=== PATIENT | male | born 1965 | race Caucasian/White ===

== ENCOUNTER 2020-04-10 16:13 | Emergency (ER) | payer OTHER, SELFPAY ==
--- NOTE | ~2020-04-10 | XR_ITS ---
EXAMINATION: XR shoulder LT min 2V EXAM DATE: 04/10/2020 16:32 INDICATION: Initial encounter following injury, with pain of the shoulder. TECHNIQUE: The following left shoulder projections obtained: frontal projection with internal rotatio n, frontal projection with external rotation, Grashey, and scapular Y view (4+ views). There is no p rior study for comparison. FINDINGS: No evidence of left shoulder rotator cuff calcific tendinosis. Unremarkable left glenoh umeral and acromioclavicular joints. Mild left shoulder primary osteoarthritis. There are no acute f ractures or dislocations identified. There is no subcutaneous gas. The soft tissue is unremarkable. There are no radiopaque foreign bodies. IMPRESSION: No acute osseous findings. Reviewed, dictated and finalized at location A. ERSITY LIBRARIAN IMPRESSION: No acute osseous findings.
[2020-04-10 16:22] VITALS: BP 135/75; PULSE 85; RESP 20; TEMP 36.1; O2SAT 100
--- NOTE | 2020-04-10 16:37 | ED.UPPEXIN ---
HPI - Extremity Injury (Upper) General Chief Complaint: Extremity Injury, Upper Stated Complaint: INJURED L SHOULDER Time Seen by Provider: 04/10/20 16:37 Source: patient and RN notes reviewed Mode of arrival: ambulatory Limitations: no limitations History of Present Illness HPI narrative: 54 year old male who presents to [facility] care with complaints of decrease in ROM of his left shoulder after a box landed on his left upper chest along clavicle area at work on the 07 of April. He states that he was helping to unload truck and a box came down and hit his upper left chest along his clavicle. Patient states no pain at rest but is unable to raise his left arm upward without discomfort and limitation. Patient denies any tingling or numbness to his left arm or hand with no radiation of pain down his arm, strong brachial and radial pulses present. Patient has taken some Ibuprofen for his discomfort but no improvement in his mobility. complaint: injury to: left Onset (ago): day(s) (3) Other Extremity Injury: Left: shoulder Other injuries: none Handedness: right Place: work Severity: mild Severity scale (1-10): 3 Relieving factors: none Exacerbating factors: movement of extremity Context: direct blow Associated symptoms: denies other symptoms Treatments prior to arrival: NSAIDS Related Data Allergies Allergy/AdvReac Type Severity Reaction Status Date / Time No Known Allergies Allergy Verified 04/10/20 16:22 Review of Systems Review of Systems: Narrative: CONSTITUTIONAL: Denies fever, chills, or sweats. EYES: Denies visual changes, redness, or discharge. ENT: Denies rhinorrhea, congestion, sore throat, or otalgia. CARDIOVASCULAR: Denies chest pain, palpitations, or edema. RESPIRATORY: Denies cough or dyspnea. GASTROINTESTINAL: Denies abdominal pain, nausea, vomiting, or diarrhea. GENITOURINARY: Denies dysuria or hematuria. SKIN: Denies rash or itching. MUSCULOSKELETAL: Denies back pain, positive left shoulder pain with extension , or myalgia. NEUROLOGIC: Denies headache, numbness, or weakness. PSYCHIATRIC: Denies anxiety or depression. All systems reviewed & are unremarkable except as noted in HPI and below PMFSH Past Medical History Medical History (Updated 04/12/20 @ 20:08 by Berenice Padron NP) Epigastric pain Surgical History Surgical History (Updated 04/12/20 @ 19:55 by Berenice Padron NP) History of tonsillectomy Family History Family History (Updated 09/29/18 @ 09:59 by DOCTOR UNKNOWN) Father Family history of primary malignant neoplasm of liver, Onset Age: 76 Social History Social History Smoking status: Never smoker Second hand tobacco smoke exposure: No Alcohol intake: current Exam Narrative: Exam Narrative: GENERAL: Well-appearing, well-nourished, and in no acute distress. HEAD: Normocephalic, atraumatic. EYES: PERRLA and EOMI. ENT: Nares clear, no rhinorrhea or epistaxis. Mucous membranes moist. NECK: Supple.no lymphadenopaty CHEST: Clear to auscultation. No respiratory distress. HEART: Regular rate and rhythm. No murmur heard. Normal peripheral pulses. ABDOMEN: Soft, nontender, nondistended, normal active bowel sounds. EXTREMITIES: Normal range of motion with exception of inability to raise left arm in upward motion since injury, circulation and sensation intact to left arm with no radiation of pain in his left arm. No crepitus of AC joint noted and pain is reproducible with extension of left arm. SKIN: Warm, dry, no rash.no ecchymosis or redness of skin in area of stated injury NEURO: No focal deficits. Alert and oriented x3. Course Vital Signs Vital signs: Vital Signs Temperature 36.1 C L 04/10/20 16:22 Pulse Rate 85 04/10/20 16:22 Respiratory Rate 20 04/10/20 16:22 Blood Pressure 135/75 04/10/20 16:22 Pulse Oximetry 100 04/10/20 16:22 Temperature 36.1 C L 04/10/20 16:22 Pulse Rate 85 04/10/20 16:22 Respiratory Rate 20 04/10/20 16:22 Blo
== END 2020-04-10 16:57 | disposition home or self-care (01) ==
PROVIDERS: Emergency Provider Registered Nurse; PCP Family Medicine
DX: M25.512 Pain in left shoulder (principal)
CPT/HCPCS: 73030; 99213; G0463

== ENCOUNTER → 2020-05-03 15:20 | Outpatient (CLI) | payer BC, SELFPAY ==
--- NOTE | ~2020-05-03 | MR_ITS ---
EXAMINATION: MR shoulder LT wo con DATE: 05/03/2020 16:34 INDICATION: Left shoulder pain TECHNIQUE: Magnetic resonance imaging (MRI) of the left shoulder was performed without intravenous co ntrast. Sequences included axial PD-weighted FS FSE, coronal oblique PD-weighted FS FSE, coronal obli que T2-weighted FS FSE, sagittal PD-weighted FS FSE, and sagittal T1-weighted SE. COMPARISON: Left shoulder radiographs dated 04/10/2020 FINDINGS: Coracoacromial arch: The acromion undersurface is curved in morphology (type II). The coracoacromial ligament is normal. N egligible acromioclavicular osteoarthritis. Rotator cuff: Mild infraspinatus tendinopathy without discrete tear. The supraspinatus, teres minor and subscapular is tendons are normal. Normal rotator cuff muscle bulk and signal. Biceps tendon, glenoid labrum and glenohumeral cartilage: Long head of the biceps tendon is normal. Superior, anterior to posterior tear of the glenoid labrum (SLAP tear) at the 10:00-12:00 position of the posterior superior glenoid labrum. Glenohumeral cartil age is normal. Fluid: Physiologic amount of fluid in the glenohumeral joint and biceps tendon sheath. No loose osteochondra l bodies. No abnormal fluid signal in the subacromial/subdeltoid bursa to suggest bursitis. Bones: 9 mm T2 hyperintense lesion along the physeal scar at the left humeral head with location and appeara nce most consistent with an enchondroma. There is also a smaller bone island at the left humeral head . Marrow signal is otherwise normal. No reactive edema, fracture or other pathologic marrow replacing process. IMPRESSION: 1. SLAP tear at the superior to posterior superior glenoid labrum. 2. Mild infraspinatus tendinopathy without discrete tear. Reviewed, dictated and finalized at location B. LE ENDING MACHINE OPERATOR
== END ==
PROVIDERS: Visit Provider Nurse Practitioner Family
DX: M25.512 Pain in left shoulder (principal); S43.432A Superior glenoid labrum lesion of left shoulder, initial encounter; M75.82 Other shoulder lesions, left shoulder
CPT/HCPCS: 73221

== ENCOUNTER 2020-07-18 22:35 | Emergency (ER) | payer BC, SELFPAY ==
--- NOTE | ~2020-07-18 | XR_ITS ---
EXAMINATION: XR lumbar spine 2-3V DATE: 07/18/2020 23:05 INDICATION: Low back pain. TECHNIQUE: 3 views of lumbar spine were obtained. COMPARISON: CT abdomen and pelvis 03/07/2013 FINDINGS: There is 8 degrees levocurvature of lumbar spine. There is a compression fracture of L3 wit h 1/5 loss of height. There is mildly decreased disc height at L4-L5. There is multilevel mild facet joint osteoarthritis. IMPRESSION: 1. Age-indeterminate compression fracture of L3. 2. Mild lumbar spondylosis. Reviewed, dictated and finalized at location A. ICANE TRACKER
--- NOTE | ~2020-07-18 | CT_ITS ---
EXAMINATION: CT lumbar spine wo con EXAM DATE: 07/19/2020 00:19 INDICATION: Low back pain and spasms for a week. TECHNIQUE: Spiral CT of the lumbar spine was performed without contrast. Axial, coronal and sagittal images were reviewed. The dose-length product (DLP) for this examination was 754.87 mGy-cm. The e xposure was tailored according to patient size (auto mA exposure control), and iterative reconstructi on (ASIR) was used as additional dose reduction technique. Correlation is made to lumbar x-ray 07/18. FINDINGS: There are innumerable small lytic regions throughout the bones, likely multiple myeloma or metastatic disease. There is a pathological compression fracture inferior endplate of L3 which could be acute, about 20% loss of vertebral body height. The vertebral body and disc heights are otherwise well maintained. The vertebral bodies are aligned in the AP dimension. Number than mild neural forami nal stenosis at lower lumbar levels. Mild lumbar facet arthropathy. Punctate bilateral inferior calyc eal stones. No retroperitoneal lymphadenopathy. IMPRESSION: 1. Innumerable small lytic osseous lesions likely multiple myeloma or metastatic disease. 2. Mild compression fracture inferior endplate L3, probably acute pathological fracture. Reviewed, dictated and finalized at location B. HOUSE ATTENDANT IMPRESSION: 1. Innumerable small lytic osseous lesions likely multiple myeloma or metastat ic disease. 2. Mild compression fracture inferior endplate L3, probably acute pathological fracture.
[2020-07-18 22:41] VITALS: BP 151/89; PULSE 77; RESP 17; TEMP 36.4; O2SAT 99
--- NOTE | 2020-07-18 22:51 | ED.BACK ---
HPI - Back Pain/Injury General Chief Complaint: Back Pain/Injury Stated Complaint: Back spasms Time Seen by Provider: 07/18/20 22:39 Source: patient Mode of arrival: ambulatory Limitations: no limitations History of Present Illness HPI Narrative: This is a 55 year old male who presents for evaluation of back spasms. He reports he has sharp pain bilateral lower back pain that radiates to mid back. This pain has been present for 2 weeks, and it is gradually worsening. His pain is worse with bending over and movement. He denies any injury. He reports today his pain is radiating to bilateral flank. He denies urinary symptoms, nausea, vomiting, fever or chills. He denies urinary incontinent, leg weakness, numbness or tingling. He has been taking ibuprofen and tylenol without relief. Related Data Allergies Allergy/AdvReac Type Severity Reaction Status Date / Time No Known Allergies Allergy Verified 07/18/20 22:44 Review of Systems Review of Systems: All systems reviewed & are unremarkable except as noted in HPI and below Constitutional: Constitutional: Denies chills and Denies fever(s) ENT: Denies dizziness Respiratory: Respiratory: Denies cough and Denies dyspnea Gastrointestinal: Gastrointestinal: Denies diarrhea, Denies nausea and Denies vomiting Genitourinary: Genitourinary: Denies urinary incontinence Musculoskeletal: Musculoskeletal: Reports back pain PMFSH Past Medical History Medical History Epigastric pain Surgical History Surgical History History of hand surgery Lt hand. History of tonsillectomy History of tooth extraction Molar Family History Family History Father Family history of primary malignant neoplasm of liver, Onset Age: 76 Carcinoma of colon Other Diabetes mellitus Social History Social History Second hand tobacco smoke exposure: No Alcohol intake: current Substance use: never Gender identity (if verbalized by the patient): Male Exam Const: General: no acute distress and alert Orientation/consciousness: patient oriented x3 Eyes: EOM: EOMs intact bilaterally Resp: Effort & Inspection: normal respiratory effort and no retractions Auscultation: clear to auscultation bilaterally Cardio: Rate: regular rate Rhythm: regular rhythm Heart sounds: no murmurs GI: GI Palp: Yes Soft to palpation, No Tenderness to palpation present (GI) and No Guarding due to palpation present (GI) Auscultation: normal bowel sounds Back/Spine/Pelvis: Back: no CVA tenderness Thoracic/Lumbar Spine: paraspinal muscle tenderness and lumbar spinal tenderness Neuro: General: patient oriented x3, moves all extremities and CN's II-XI intact bilaterally Gait exam (Neuro): Normal gait present Psych: Mental Status: mental status grossly normal Affect: normal affect Course Reevaluation(s) Reevaluation #1: I have discussed with patient CT findings of nondisplaced L3 compression fracture, probably pathologic. He understands he will need to follow up with PCP. He states his pain has improved. Date: 07/19/20 Time: 00:44 Vital Signs Vital signs: Vital Signs Temperature 97.6 F 07/18/20 22:41 Pulse Rate 77 07/18/20 22:41 Respiratory Rate 17 07/18/20 22:41 Blood Pressure 151/89 H 07/18/20 22:41 Pulse Oximetry 99 07/18/20 22:41 Temperature 97.6 F 07/18/20 22:41 Pulse Rate 77 07/18/20 22:41 Respiratory Rate 17 07/18/20 22:41 Blood Pressure 151/89 H 07/18/20 22:41 Pulse Oximetry 99 07/18/20 22:41 MDM - Back Pain/Injury Lab Data Attestation: I reviewed the patient's lab results. Result diagrams: 07/18/20 23:07 07/18/20 23:07 Labs: Lab Results 07/18/20 07/18/20 07/18/20 Range/Units 23:07
[2020-07-18] MEDS: diazePAM (*CRX) 5 MG TABLET PO (23:09)
[2020-07-18] MEDS: KETOROLAC 30 MG/ML VIAL (*BKC) IM (23:09)
[2020-07-18 23:14] LABS: Basophils Percent Auto 0.6 % (0.2-1.2); Eosinophils Absolute Auto 0.1 K/mm3 (0-0.3); Eosinophils Percent Auto 2.9 % (0-4.4); Hematocrit 37.3 % (42.0-52.0); Hemoglobin 12.5 g/dL (14.0-18.0); Immature Granulocyte Absolute 0.09 K/mm3 (0.00-0.031); Immature Granulocyte Percent A 1.9 % (0-0.5); Lymphocytes Absolute Auto 1.89 K/mm3 (0.9-3.2); Lymphocytes Percent Auto 39.6 % (18.3-44.2); Mean Corpuscular HGB Conc 33.5 g/dl (32-36); Mean Corpuscular Hemoglobin 32.7 pg (26-34); Mean Corpuscular Volume 97.6 fl (80-100); Monocytes Absolute Auto 0.7 K/mm3 (0.1-0.6); Monocytes Percent Auto 14.7 % (2.6-8.5); Neutrophils Absolute Auto 1.9 K/mm3 (1.3-6.7); Neutrophils Percent Auto 40.3 % (45.5-73.1); Platelet Count Result 238 k/mm3 (150-375); Red Blood Count 3.82 M/mm3 (4.6-6.20); Red Cell Distribution Width 14.4 % (11.5-14.5); White Blood Count 4.8 K/mm3 (4.5-10.0)
[2020-07-18 23:16] LABS: Add Urine Microscopic? NO; Appearance Urine Clear (Clear); Bilirubin Urine Negative (Negative); Blood Urine Negative (Negative); Color Urine Yellow (Yellow); Glucose Urine UA Negative (Negative); Ketones Urine Negative (Negative); Leukocyte Esterase Ur Negative LEU/UL (Negative); Nitrate Urine Negative (Negative); Protein Urine Negative (Negative); Specific Grav Ur 1.019 (1.001-1.035); Urobilinogen Urine Negative mg/dL (<2.0)
[2020-07-18 23:26] LABS: Alanine Aminotransferase 69 U/L (4-50); Albumin Level 3.9 g/dL (3.5-5.1); Alkaline Phosphatase 116 U/L (38-126); Anion Gap 5 mmol/L (8-16); Aspartate Amino Transferase 52 U/L (17-59); Bilirubin,Total 0.3 mg/dL (0.2-1.3); Blood Urea Nitrogen 26 mg/dL (9-20); Calcium 8.8 mg/dL (8.4-10.2); Carbon Dioxide 28 mmol/L (22-30); Chloride 107 mmol/L (98-107); Estimated CRCL calculation 70 ml/min; Estimated Glomerular Filt Rate > 60; Glucose 99 mg/dL (75-110); Potassium 4.1 mmol/L (3.4-5.0); Sodium 140 mmol/L (137-145)
[2020-07-19] MEDS: HYDROcodone/acetaminophen (*CRX) 5-325 MG TABLET 1 TAB PO (00:07)
[2020-07-19 01:18] VITALS: BP 110/81; PULSE 79; RESP 16; TEMP 36.6; O2SAT 95
== END 2020-07-19 01:20 | disposition home or self-care (01) ==
PROVIDERS: Emergency Provider General Practice; PCP Family Medicine
DX: M84.48XA Pathological fracture, other site, initial encounter for fracture (principal); R93.7 Abnormal findings on diagnostic imaging of other parts of musculoskeletal system
CPT/HCPCS: 36415; 72100; 72131; 80053; 81003; 85025; 96372; 99284; A9270; J1885

== ENCOUNTER 2020-07-31 06:05 | Emergency (ER) | payer OTHER, SELFPAY ==
[2020-07-31] VITALS (15 sets, daily range): BP systolic 124–129; BP diastolic 76–82; PULSE 97–105; RESP 14–23; TEMP 36.7; O2SAT 86–99
--- NOTE | ~2020-07-31 | CT_ITS ---
EXAMINATION: CT chst ab pel eulogio lum w DATE: 07/31/2020 07:37 INDICATION: Chest and abdominal pain after fall TECHNIQUE: Transaxial computed tomographic images of the chest, abdomen, pelvis, thoracic, and lumbar spine were obtained after the administration of 100 cc of Omnipaque 350 intravenous contrast. The do se-length product (DLP) was 996.12 mGy-cm. Automated exposure control and iterative reconstruction te chnique were employed. COMPARISON: 03/07/2013, 07/19/2020 FINDINGS: CHEST CT: There are airspace opacities of the lower lobes. Trace pleural effusions are present. There is no pne umothorax. The heart size is normal. 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 There a re no pathologically enlarged thoracic lymph nodes. There are innumerable lytic lesions throughout th e visualized bones of the thorax including the spine, the sternum, the ribs, and the bilateral scapul ae. ABDOMEN/PELVIS CT: A stable 10 mm low-attenuation lesion in the right hepatic lobe likely represents a hemangioma. The s pleen, pancreas, gallbladder, and adrenal glands are normal. The right kidney is unremarkable. There is a 9 mm cyst in the left kidney. No pathologically enlarged abdominal or pelvic lymph nodes are chacorta ntified. There is no free intraperitoneal gas or evidence of bowel obstruction. A large volume of col onic stool is present. There is marked distention of the urinary bladder. There are innumerable lytic lesions throughout the pelvis. THORACIC SPINE CT: The vertebral body heights and alignment are normal. No fracture is identified. Th ere is mild loss of intervertebral disc space height at multiple levels. Again noted are innumerable small lytic lesions throughout the thoracic spine, visualized ribs, and scapulae. LUMBAR SPINE CT: There is an unchanged compression fracture of L3. There is a new L2 compression frac ture with approximately 50% loss of mid vertebral body height. No additional lumbar fracture is ident ified. Bone alignment is normal. The intervertebral disc space heights are maintained. There are nume rable lytic lesions throughout the lumbar spine and visualized pelvis. IMPRESSION: 1. Atelectasis and pneumonia of the lower lobes. 2. Innumerable lytic lesions throughout the visualized osseous structures of the thorax, abdomen, and pelvis with a stable compression fracture of L3 and a new compression fracture at L2, likely patholo gic. Differential for lytic lesions includes multiple myeloma and metastasis. Reviewed, dictated and finalized at location A. HOLE DIGGING MACHINE OPERATOR IMPRESSION: 1. Atelectasis and pneumonia of the lower lobes. 2. Innumerable lytic lesions throughout the visualized osseous structures of th e thorax, abdomen, and pelvis with a stable compression fracture of L3 and a ne w compression fracture at L2, likely pathologic. Differential for lytic lesions includes multiple myeloma and metastasis.
[2020-07-31] MEDS: MORPHINE SULFATE (*CRX) 4 MG/ML INJ IV PUSH (06:51)
[2020-07-31] MEDS: SODIUM CHLORIDE 0.9% IV 1,000 ML 999 ML IV CONT (06:51)
[2020-07-31 06:58] LABS: Basophils Percent Auto 0.7 % (0.2-1.2); Eosinophils Percent Auto 0.5 % (0-4.4); Hemoglobin 12.3 g/dL (14.0-18.0); Immature Granulocyte Absolute 0.18 K/mm3 (0.00-0.031); Immature Granulocyte Percent A 4.5 % (0-0.5); Lymphocytes Absolute Auto 0.84 K/mm3 (0.9-3.2); Lymphocytes Percent Auto 20.8 % (18.3-44.2); Mean Corpuscular HGB Conc 33.2 g/dl (32-36); Mean Corpuscular Hemoglobin 32.5 pg (26-34); Mean Corpuscular Volume 97.9 fl (80-100); Mean Platelet Volume 8.9 fl (7.4-10.4); Monocytes Absolute Auto 0.5 K/mm3 (0.1-0.6); Monocytes Percent Auto 13.1 % (2.6-8.5); Neutrophils Absolute Auto 2.4 K/mm3 (1.3-6.7); Neutrophils Percent Auto 60.4 % (45.5-73.1); Platelet Count Result 197 k/mm3 (150-375); Red Blood Count 3.78 M/mm3 (4.6-6.20); Red Cell Distribution Width 14.3 % (11.5-14.5)
[2020-07-31 07:08] LABS: Alanine Aminotransferase 52 U/L (4-50); Albumin Level 3.8 g/dL (3.5-5.1); Alkaline Phosphatase 122 U/L (38-126); Anion Gap 4 mmol/L (8-16); Aspartate Amino Transferase 43 U/L (17-59); Bilirubin,Total 0.4 mg/dL (0.2-1.3); Blood Urea Nitrogen 16 mg/dL (9-20); Calcium 9.4 mg/dL (8.4-10.2); Carbon Dioxide 32 mmol/L (22-30); Chloride 103 mmol/L (98-107); Estimated CRCL calculation 65 ml/min; Estimated Glomerular Filt Rate > 60; Glucose 102 mg/dL (75-110); Potassium 4.1 mmol/L (3.4-5.0); Sodium 139 mmol/L (137-145)
[2020-07-31] MEDS: KETOROLAC 30 MG/ML VIAL (*BKC) IV PUSH (07:15)
[2020-07-31] MEDS: diazePAM INJ (*CRX) 10 MG/2 ML SYRINGE 5 MG IV PUSH (07:15)
--- NOTE | 2020-07-31 08:44 | ED.GENADULT ---
HPI - General Adult General Chief complaint: Fall Stated complaint: fall - bilat shoulder pain Time Seen by Provider: 07/31/20 06:17 History of Present Illness HPI narrative: Patient is a 55-year-old male who presents the ER with bilateral shoulder/back pain. Patient got out of bed this morning and was feeling diffuse muscle spasms that caused him to fall to the ground. He tried to catch himself and developed sudden searing pain in his back/shoulders. He has been unable to get up. Received morphine in route by EMS that caused brief hypoxia. Patient suffered a L3 superior endplate fracture couple weeks ago and incidentally multiple osteolytic lesions were found. He followed up with his PCP and is scheduled to see Dr. Kahn and Oncologist at [facility] tomorrow. It is unknown whether patient has multiple myeloma or metastases from an unknown primary cancer. Patient denies striking his head or losing consciousness. No new numbness or tingling. Patient also denies any runny nose/sore throat/productive cough. No fevers or chills. Related Data Allergies Allergy/AdvReac Type Severity Reaction Status Date / Time No Known Allergies Allergy Verified 07/31/20 06:12 Review of Systems Review of Systems: All systems reviewed & are unremarkable except as noted in HPI and below Constitutional: Constitutional: Denies chills and Denies fever(s) Cardiovascular: Cardiovascular: Denies chest pain and Denies radiating jaw, neck or arm pain Respiratory: Respiratory: Denies cough, Denies dyspnea and Denies wheezing Gastrointestinal: Gastrointestinal: Reports abdominal pain, Denies diarrhea, Denies nausea and Denies vomiting Musculoskeletal: Musculoskeletal: Reports back pain, Reports myalgias, Denies arthralgias, Denies joint swelling and Reports muscle cramps Neurologic: Denies focal weakness and Denies numbness PMF Past Medical History Medical History Epigastric pain Pre-diabetes Vitamin D deficiency Surgical History Surgical History History of hand surgery (~2018) Lt hand. History of tonsillectomy (~1970) History of tooth extraction (~2019) Molar Family History Family History Father Family history of primary malignant neoplasm of liver, Onset Age: 76 Carcinoma of colon Other Diabetes mellitus Social History Social History Second hand tobacco smoke exposure: No Alcohol intake: current Substance use: never Gender identity (if verbalized by the patient): Male Exam Narrative: Exam Narrative: GENERAL: Uncomfortable-appearing, well-nourished, and in mild distress. HEAD: Normocephalic, atraumatic. ENT: Mucous membranes moist. CHEST: Clear to auscultation. No respiratory distress. HEART: Regular rate and rhythm. Normal peripheral pulses. ABDOMEN: Soft, mild diffuse tenderness with voluntary guarding (a be related to pain from back), no palpable organomegaly, nondistended. EXTREMITIES: Normal range of motion. No edema. Back: Tender palpation over the left scapula that appears more swollen than the right side. No midline tenderness of the thoracic spine and there is discomfort over the lumbar spine without localizing point tenderness. No visual evidence of trauma to the back including abrasions/contusions. SKIN: Warm, dry, no rash. NEURO: Alert and oriented x3. Course Course Emergency Course: Accepted by Dr. Naik in the ER at [facility]. Patient informed of diagnosis and treatment plan. Patient no longer on oxygen after brief hypoxia after receiving Valium. It is felt patient likely has atelectasis from splinting when breathing due to his diffuse body pains have been occurring. Vital Signs Vital signs: Vital Signs Temperature 98.1 F 07/31/20 06:04 Pulse Rate 105 H 07/31/20 06:04 Respi
== END 2020-07-31 09:40 | disposition short-term general hospital (02) ==
PROVIDERS: Emergency Medicine; Emergency Provider Emergency Medicine; PCP Family Medicine
DX: M48.56XA Collapsed vertebra, not elsewhere classified, lumbar region, initial encounter for fracture (principal); M84.412A Pathological fracture, left shoulder, initial encounter for fracture; R73.03 Prediabetes; E55.9 Vitamin D deficiency, unspecified
CPT/HCPCS: 36415; 71260; 72129; 72132; 74177; 80053; 85025; 96361; 96374; 96375; 99284; J1885; J2270; J3360; J7030; Q9967